=== PATIENT | male | born 1990 | race African-American/Black ===

== ENCOUNTER 2021-02-13 23:16 | Emergency (ER) | payer SELFPAY ==
[2021-02-13] MEDS ORDERED: Lidocaine 1% w/Epinephrine 1:100K 20 ML VIAL ONE (23:47)
== END 2021-02-14 00:55 | disposition home or self-care (01) ==
LOC: CSHERS 23:16
DX: K04.7 Periapical abscess without sinus (principal); J45.909 Unspecified asthma, uncomplicated; F17.210 Nicotine dependence, cigarettes, uncomplicated
CPT/HCPCS: 64400